=== PATIENT | male | born 1980 | race Caucasian/White ===

== ENCOUNTER 2018-01-17 05:53 | Day surgery (SDC) | payer OTHER ==
[2018-01-17] MEDS ORDERED: CEFAZOLIN 2 GM/50 ML (PMX) 50 ML IVPB (06:00)
[2018-01-17] MEDS ORDERED: PROPOFOL 20 ML (06:52)
[2018-01-17] MEDS ORDERED: CEFAZOLIN 1 GM INJ (06:52)
[2018-01-17] MEDS ORDERED: LIDOCAINE 2% (SDV) 5 ML INJ (06:52)
[2018-01-17] MEDS ORDERED: FENTAnyl 50 MCG/ML VIAL (06:53)
[2018-01-17] MEDS ORDERED: ONDANSETRON 4 MG INJ (06:53)
[2018-01-17] MEDS: BUPIVACAINE 0.5% (SDV) 30 ML INJ (07:23)
[2018-01-17] MEDS ORDERED: HYDROmorphONE (0.2 MG/ML) 10ML SYG IV ×2 (07:30)
[2018-01-17] MEDS ORDERED: ONDANSETRON 4 MG INJ IV (07:30)
[2018-01-17] MEDS ORDERED: FENTAnyl 50 MCG/ML VIAL IV ×2 (07:30)
[2018-01-17] MEDS ORDERED: MIDAZOLAM 1 MG/ML 2 ML INJ (07:39)
[2018-01-17] MEDS ORDERED: HYDROCODONE/APAP (5/325) TAB PO (09:00)
== END 2018-01-17 10:40 | disposition home or self-care (01) ==
LOC: SDS 05:53
DX: N47.1 Phimosis (principal); I10 Essential (primary) hypertension; E11.9 Type 2 diabetes mellitus without complications; E78.5 Hyperlipidemia, unspecified; E66.9 Obesity, unspecified; Z68.35 Body mass index [BMI] 35.0-35.9, adult
CPT/HCPCS: 54161; 82962; 88304

== ENCOUNTER 2018-01-24 10:00 | Inpatient (IN) | payer OTHER ==
[2018-01-24] MEDS ORDERED: INSULIN REGULAR 10 ML INJ IV (10:05)
[2018-01-24] MEDS ORDERED: INSULIN REGULAR, HUMAN 100 UNIT/1 ML 3ML VIAL IV (10:18)
[2018-01-24] MEDS: ONDANSETRON 4 MG INJ IV ×2 (10:45→22:20)
[2018-01-24] MEDS: morphine 4 MG/ML VIAL IV (10:45)
[2018-01-24] MEDS: SOD CHLORIDE 0.9% 2,000 ML IV (10:46)
[2018-01-24 11:19] LABS: ADD MAN DIFF? NO
[2018-01-24 11:23] LABS: WHITE BLOOD COUNT 12.7 10^3/ul (4.8-10.8)
[2018-01-24 11:23] LABS: BASOPHILS % 0.2 % (0.0-2.0); HEMATOCRIT 48.4 % (42.0-52.0); HEMOGLOBIN 17.3 g/dl (14.0-18.0); LYMPHOCYTES # 1.2 10^3/ul (0.8-2.9); LYMPHOCYTES % 9.4 % (15.0-51.0); MEAN CORPUSCULAR HEMOGLOBIN 30.8 pg (29.0-33.0); MEAN CORPUSCULAR HGB CONC 35.7 g/dl (32.0-37.0); MEAN CORPUSCULAR VOLUME 86.3 fl (82.0-101.0); MEAN PLATELET VOLUME 10.7 fl (7.4-10.4); MONOCYTE # 0.8 10^3/ul (0.3-0.9); MONOCYTES % 6.6 % (0.0-11.0); NEUTROPHIL # 10.6 10^3/ul (1.6-7.5); NEUTROPHILS % 83.5 % (39.0-77.0); PLATELET COUNT 280 10^3/UL (140-415); RED BLOOD COUNT 5.61 10^6/ul (4.70-6.10); RED CELL DISTRIBUTION WIDTH 12.7 % (11.5-14.5)
[2018-01-24 11:43] LABS: ETHANOL < 10.0 mg/dl
[2018-01-24 11:43] LABS: ALANINE AMINOTRANSFERASE 35 IU/L (13-69); ALKALINE PHOSPHATASE 83 IU/L (42-121); AMYLASE 63 U/L (11-123); ANION GAP 19 (8-16); ASPARTATE AMINO TRANSFERASE 20 IU/L (15-46); BLOOD UREA NITROGEN 22 mg/dl (7-20); CALCIUM 9.5 mg/dl (8.4-10.2); CARBON DIOXIDE 30 mmol/L (21-31); CHLORIDE 97 mmol/L (97-110); GLUCOSE 249 mg/dl (70-220); INR 1.05; LIPASE 55 U/L (23-300); MAGNESIUM 2.2 mg/dl (1.7-2.5); PHOSPHORUS 4.7 mg/dl (2.5-4.9); PROTIME 13.8 Sec (11.9-14.9); PT RATIO 1.1; SODIUM 142 mmol/L (135-144)
[2018-01-24 11:44] LABS: ALBUMIN 5.1 g/dl (3.3-4.9); PARTIAL THROMBOPLASTIN TIME 25.2 Sec (25.0-35.0)
[2018-01-24 11:47] LABS: LACTIC ACID 2.3 mmol/L (0.5-2.0)
[2018-01-24] MEDS: MAGNESIUM SULFATE 2 GM, MULTIVITAMINS 10 ML, THIAMINE 100 MG, FOLIC ACID 1 MG in SOD CH... IV (11:51)
[2018-01-24] MEDS: LORAZEPAM 2 MG INJ IV (11:59)
[2018-01-24] MEDS: METOCLOPRAMIDE 10 MG INJ IV (11:59)
[2018-01-24] MEDS: LABETALOL HCL 20MG INJ IV (12:30)
[2018-01-24 13:20] LABS: LACTIC ACID 1.6 mmol/L (0.5-2.0)
[2018-01-24] MEDS: SOD CHLORIDE 0.9% 100 ML (13:26)
[2018-01-24] MEDS: IOHEXOL 300MG/ML 150 ML BTL (13:26)
[2018-01-24] MEDS: SODIUM CHLORIDE 0.9% 1L BAG IV* (13:50)
[2018-01-24] MEDS ORDERED: ONDANSETRON 4 MG TAB PO (14:00)
[2018-01-24] MEDS ORDERED: NACL 0.9% 3 ML SYG IV (14:00)
[2018-01-24] MEDS: HYPOGLYCEMIA PROTOCOL when Glucose is <70 mg/dL or symptomatic <90 mg/dL. XX (14:38)
[2018-01-24] MEDS: Discontinue current oral sulfonylureas (glyburide, glipizide, and/or glimepiride) prior to XX (14:38)
[2018-01-24 14:50] LABS: HEMOGLOBIN A1C 8.1 % (0-5.9)
[2018-01-24] MEDS ORDERED: GLUCOSE GEL 15 GRAM TUBE PO ×2 (15:00)
[2018-01-24] MEDS ORDERED: GLUCAGON 1 MG INJ IM (15:00)
[2018-01-24] MEDS ORDERED: DEXTROSE 50% 50 ML SYRINGE IV ×2 (15:00)
[2018-01-24] MEDS ORDERED: GLUCOSE GEL 15 GRAM TUBE BUCCAL (15:00)
[2018-01-24] MEDS: PANTOPRAZOLE (EC) 40 MG TAB PO (18:21)
[2018-01-24] MEDS: SOD CHLORIDE 0.9% 1,000 ML IV ×2 (18:22→22:47)
[2018-01-24] MEDS: INSULIN ASPART [NOVOLOG] 3 ML PEN SC ×4 (18:28→20:40)
[2018-01-24] MEDS: ATORVASTATIN 80 MG TAB PO (20:32)
[2018-01-24] MEDS: INSULIN GLARGINE [LANtus] 3 ML PEN SC (20:40)
[2018-01-24] MEDS: ACETAMINOPHEN 325 MG TAB PO (22:20)
[2018-01-25] MEDS: ACCU-CHEK XX (01:41)
[2018-01-25] MEDS: SOD CHLORIDE 0.9% 1,000 ML IV ×4 (01:41→12:00)
[2018-01-25 05:20] LABS: ADD MAN DIFF? NO
[2018-01-25 05:22] LABS: WHITE BLOOD COUNT 12.1 10^3/ul (4.8-10.8)
[2018-01-25 05:22] LABS: BASOPHILS % 0.2 % (0.0-2.0); EOSINOPHILS % 0.1 % (0.0-7.0); HEMATOCRIT 43.3 % (42.0-52.0); LYMPHOCYTES # 1.7 10^3/ul (0.8-2.9); MEAN CORPUSCULAR HEMOGLOBIN 29.9 pg (29.0-33.0); MEAN CORPUSCULAR HGB CONC 34.6 g/dl (32.0-37.0); MEAN CORPUSCULAR VOLUME 86.4 fl (82.0-101.0); MEAN PLATELET VOLUME 9.9 fl (7.4-10.4); MONOCYTE # 0.9 10^3/ul (0.3-0.9); NEUTROPHIL # 9.5 10^3/ul (1.6-7.5); NEUTROPHILS % 78.3 % (39.0-77.0); PLATELET COUNT 245 10^3/UL (140-415); RED BLOOD COUNT 5.01 10^6/ul (4.70-6.10); RED CELL DISTRIBUTION WIDTH 12.7 % (11.5-14.5)
[2018-01-25] MEDS: PANTOPRAZOLE (EC) 40 MG TAB PO ×2 (05:27→17:15)
[2018-01-25] MEDS: ONDANSETRON 4 MG INJ IV ×3 (05:27→19:56)
[2018-01-25 05:51] LABS: ALANINE AMINOTRANSFERASE 29 IU/L (13-69); ALBUMIN/GLOBULIN RATIO 1.25; ALKALINE PHOSPHATASE 63 IU/L (42-121); ANION GAP 13 (8-16); ASPARTATE AMINO TRANSFERASE 13 IU/L (15-46); BLOOD UREA NITROGEN 11 mg/dl (7-20); CALCIUM 8.3 mg/dl (8.4-10.2); CARBON DIOXIDE 26 mmol/L (21-31); CHLORIDE 103 mmol/L (97-110); GLUCOSE 173 mg/dl (70-220); MAGNESIUM 2.3 mg/dl (1.7-2.5); SODIUM 138 mmol/L (135-144); TOTAL PROTEIN 7.2 g/dl (6.1-8.1)
[2018-01-25] MEDS: ASPIRIN (EC) 81 MG TAB PO (08:18)
[2018-01-25] MEDS: BENAZEPRIL 20 MG TAB PO (08:18)
[2018-01-25] MEDS: METOPROLOL (XL) 25 MG TAB PO (08:19)
[2018-01-25] MEDS: ENOXAPARIN 40 MG/0.4 ML SYG SC (08:21)
[2018-01-25] MEDS: INSULIN ASPART [NOVOLOG] 3 ML PEN SC ×7 (09:00→21:00)
[2018-01-25] MEDS: METOCLOPRAMIDE 10 MG INJ IV ×2 (10:36→17:16)
[2018-01-25 15:23] LABS: ADD UMIC YES; UR ASCORBIC ACID NEGATIVE (NEGATIVE); UR BILIRUBIN (Dip) NEGATIVE (NEGATIVE); UR BLOOD (Dip) NEGATIVE (NEGATIVE); UR CLARITY CLEAR (CLEAR); UR COLOR YELLOW (YELLOW); UR GLUCOSE (Dip) 3+ mg/dL (NEGATIVE); UR KETONES (Dip) 1+ mg/dL (NEGATIVE); UR LEUKOCYTE ESTERASE (Dip) NEGATIVE Leu/ul (NEGATIVE); UR NITRITE (Dip) NEGATIVE (NEGATIVE); UR RBC 5 /HPF (0-5); UR SPECIFIC GRAVITY (Dip) 1.022 (1.003-1.030); UR TOTAL PROTEIN (Dip) 1+ mg/dl (NEGATIVE); UR UROBILINOGEN (Dip) NEGATIVE (NEGATIVE); UR WBC 1 /HPF (0-5)
[2018-01-25 16:29] LABS: AMPHETAMINE/METHAMPHETAMINE NEGATIVE (NEGATIVE); BARBITURATES NEGATIVE (NEGATIVE); BENZODIAZEPINES NEGATIVE (NEGATIVE); CANNABINOIDS NEGATIVE (NEGATIVE); COCAINE NEGATIVE (NEGATIVE); OPIATES POSITIVE (NEGATIVE)
[2018-01-25] MEDS: ATORVASTATIN 80 MG TAB PO (21:00)
[2018-01-25] MEDS: INSULIN GLARGINE [LANtus] 3 ML PEN SC (21:12)
[2018-01-26] MEDS: METOCLOPRAMIDE 10 MG INJ IV ×5 (00:01→23:36)
[2018-01-26] MEDS: SOD CHLORIDE 0.9% 1,000 ML IV ×5 (00:01→21:57)
[2018-01-26] MEDS: ACCU-CHEK XX (01:44)
[2018-01-26 05:31] LABS: ADD MAN DIFF? NO
[2018-01-26] MEDS: PANTOPRAZOLE (EC) 40 MG TAB PO ×2 (05:33→18:22)
[2018-01-26 05:41] LABS: BASOPHILS % 0.3 % (0.0-2.0); EOSINOPHILS % 0.1 % (0.0-7.0); HEMATOCRIT 43.4 % (42.0-52.0); HEMOGLOBIN 15.1 g/dl (14.0-18.0); LYMPHOCYTES # 1.8 10^3/ul (0.8-2.9); LYMPHOCYTES % 17.8 % (15.0-51.0); MEAN CORPUSCULAR HEMOGLOBIN 29.7 pg (29.0-33.0); MEAN CORPUSCULAR HGB CONC 34.8 g/dl (32.0-37.0); MEAN CORPUSCULAR VOLUME 85.3 fl (82.0-101.0); MEAN PLATELET VOLUME 10.3 fl (7.4-10.4); MONOCYTE # 0.9 10^3/ul (0.3-0.9); MONOCYTES % 8.7 % (0.0-11.0); NEUTROPHIL # 7.4 10^3/ul (1.6-7.5); NEUTROPHILS % 72.8 % (39.0-77.0); PLATELET COUNT 243 10^3/UL (140-415); RED BLOOD COUNT 5.09 10^6/ul (4.70-6.10); RED CELL DISTRIBUTION WIDTH 12.2 % (11.5-14.5)
[2018-01-26 05:41] LABS: WHITE BLOOD COUNT 10.1 10^3/ul (4.8-10.8)
[2018-01-26 06:06] LABS: ANION GAP 13 (8-16); BLOOD UREA NITROGEN 11 mg/dl (7-20); CALCIUM 8.1 mg/dl (8.4-10.2); CARBON DIOXIDE 26 mmol/L (21-31); CHLORIDE 103 mmol/L (97-110); CREATININE 0.55 mg/dl (0.61-1.24); GLUCOSE 151 mg/dl (70-220); MAGNESIUM 2.4 mg/dl (1.7-2.5); POTASSIUM 3.6 mmol/L (3.5-5.1); SODIUM 138 mmol/L (135-144)
[2018-01-26] MEDS: METOPROLOL (XL) 25 MG TAB PO (08:36)
[2018-01-26] MEDS: ASPIRIN (EC) 81 MG TAB PO (08:37)
[2018-01-26] MEDS: BENAZEPRIL 20 MG TAB PO (08:37)
[2018-01-26] MEDS: ENOXAPARIN 40 MG/0.4 ML SYG SC (08:39)
[2018-01-26] MEDS: ONDANSETRON 4 MG INJ IV ×2 (08:51→18:01)
[2018-01-26] MEDS: INSULIN ASPART [NOVOLOG] 3 ML PEN SC ×7 (09:18→21:00)
[2018-01-26] MEDS: INSULIN GLARGINE [LANtus] 3 ML PEN SC (21:00)
[2018-01-26] MEDS: ATORVASTATIN 80 MG TAB PO (21:53)
[2018-01-27] MEDS: INSULIN ASPART [NOVOLOG] 3 ML PEN SC ×9 (01:00→20:27)
[2018-01-27] MEDS: ONDANSETRON 4 MG INJ IV ×2 (01:47→07:10)
[2018-01-27] MEDS: ACCU-CHEK XX (02:00)
[2018-01-27] MEDS: METOCLOPRAMIDE 10 MG INJ IV ×4 (05:05→23:59)
[2018-01-27 05:07] LABS: ADD MAN DIFF? NO; BASOPHILS % 0.4 % (0.0-2.0); EOSINOPHILS % 0.2 % (0.0-7.0); HEMATOCRIT 44.6 % (42.0-52.0); HEMOGLOBIN 15.7 g/dl (14.0-18.0); LYMPHOCYTES # 2.1 10^3/ul (0.8-2.9); LYMPHOCYTES % 20.3 % (15.0-51.0); MEAN CORPUSCULAR HEMOGLOBIN 29.7 pg (29.0-33.0); MEAN CORPUSCULAR HGB CONC 35.2 g/dl (32.0-37.0); MEAN CORPUSCULAR VOLUME 84.5 fl (82.0-101.0); MEAN PLATELET VOLUME 10.2 fl (7.4-10.4); MONOCYTE # 0.9 10^3/ul (0.3-0.9); MONOCYTES % 8.4 % (0.0-11.0); NEUTROPHIL # 7.1 10^3/ul (1.6-7.5); NEUTROPHILS % 70.4 % (39.0-77.0); PLATELET COUNT 256 10^3/UL (140-415); RED BLOOD COUNT 5.28 10^6/ul (4.70-6.10); RED CELL DISTRIBUTION WIDTH 12.2 % (11.5-14.5)
[2018-01-27 05:07] LABS: WHITE BLOOD COUNT 10.1 10^3/ul (4.8-10.8)
[2018-01-27] MEDS: PANTOPRAZOLE (EC) 40 MG TAB PO ×2 (05:12→18:00)
[2018-01-27 05:33] LABS: ANION GAP 16 (8-16); BLOOD UREA NITROGEN 10 mg/dl (7-20); CALCIUM 8.3 mg/dl (8.4-10.2); CARBON DIOXIDE 26 mmol/L (21-31); CHLORIDE 101 mmol/L (97-110); CREATININE 0.59 mg/dl (0.61-1.24); GLUCOSE 107 mg/dl (70-220); MAGNESIUM 2.4 mg/dl (1.7-2.5); PHOSPHORUS 3.2 mg/dl (2.5-4.9); POTASSIUM 3.5 mmol/L (3.5-5.1); SODIUM 139 mmol/L (135-144)
[2018-01-27] MEDS: METOPROLOL (XL) 25 MG TAB PO (05:33)
[2018-01-27] MEDS: BENAZEPRIL 20 MG TAB PO (05:34)
[2018-01-27] MEDS: ASPIRIN (EC) 81 MG TAB PO (08:36)
[2018-01-27] MEDS: ENOXAPARIN 40 MG/0.4 ML SYG SC (08:37)
[2018-01-27] MEDS: SOD CHLORIDE 0.9% 1,000 ML IV ×3 (12:24→23:27)
[2018-01-27] MEDS: ATORVASTATIN 80 MG TAB PO (20:23)
[2018-01-27] MEDS: INSULIN GLARGINE [LANtus] 3 ML PEN SC (20:25)
[2018-01-28] MEDS: INSULIN ASPART [NOVOLOG] 3 ML PEN SC ×6 (01:10→13:04)
[2018-01-28] MEDS: ACCU-CHEK XX (01:11)
[2018-01-28] MEDS: METOCLOPRAMIDE 10 MG INJ IV ×2 (05:10→11:48)
[2018-01-28] MEDS: PANTOPRAZOLE (EC) 40 MG TAB PO (05:10)
[2018-01-28] MEDS: ASPIRIN (EC) 81 MG TAB PO (09:16)
[2018-01-28] MEDS: BENAZEPRIL 20 MG TAB PO (09:16)
[2018-01-28] MEDS: METOPROLOL (XL) 25 MG TAB PO (09:16)
[2018-01-28] MEDS: ENOXAPARIN 40 MG/0.4 ML SYG SC (09:18)
[2018-01-28] MEDS: SOD CHLORIDE 0.9% 1,000 ML IV (09:26)
[2018-01-28 14:44] LABS: IMMUNOGLOBULIN A 344 mg/dl (70-400)
== END 2018-01-28 16:04 | disposition home or self-care (01) | DRG 639 ==
LOC: E/R 10:00 → TEL 13:47 → MS1 23:05
DX: E11.10 Type 2 diabetes mellitus with ketoacidosis without coma (principal); K20.9 Esophagitis, unspecified; K29.70 Gastritis, unspecified, without bleeding; R11.10 Vomiting, unspecified; Z79.4 Long term (current) use of insulin
CPT/HCPCS: 74177; 78264; 80048; 80053; 80307; 81001; 82150; 82784; 82962; 83036; 83605; 83690; 83735; 84100; 85025; 85610; 85730; 87040; 87086; 88305; 88312; 88313; 93005; 96361; 96365; 96366; 96375; 99285-25; G0378

== ENCOUNTER 2018-03-26 13:42 | Inpatient (IN) | payer OTHER ==
[2018-03-26] MEDS: SOD CHLORIDE 0.9% 1,000 ML IV ×3 (14:12→17:41)
[2018-03-26] MEDS: ONDANSETRON 4 MG INJ IV ×2 (14:13→16:13)
[2018-03-26] MEDS: PANTOPRAZOLE 40 MG INJ IV (14:13)
[2018-03-26 14:17] LABS: WHITE BLOOD COUNT 13.1 10^3/ul (4.8-10.8)
[2018-03-26 14:17] LABS: ABNORMAL IP MESSAGE 1; HEMATOCRIT 45.2 % (42.0-52.0); HEMOGLOBIN 15.7 g/dl (14.0-18.0); IMMATURE GRANS #M 0.03 10^3/ul; IMMATURE GRANS % (M) 0.2 %; MEAN CORPUSCULAR HEMOGLOBIN 29.8 pg (29.0-33.0); MEAN CORPUSCULAR HGB CONC 34.7 g/dl (32.0-37.0); MEAN CORPUSCULAR VOLUME 85.8 fl (82.0-101.0); MEAN PLATELET VOLUME 10.8 fl (7.4-10.4); PLATELET COUNT 268 10^3/UL (140-415); POSITIVE DIFF @See below; RED BLOOD COUNT 5.27 10^6/ul (4.70-6.10); RED CELL DISTRIBUTION WIDTH 12.4 % (11.5-14.5)
[2018-03-26 14:19] LABS: ADD MAN DIFF? YES
[2018-03-26 14:34] LABS: ALANINE AMINOTRANSFERASE 28 IU/L (13-69); ALBUMIN 4.4 g/dl (3.3-4.9); ALBUMIN/GLOBULIN RATIO 1.37; ALKALINE PHOSPHATASE 98 IU/L (42-121); ASPARTATE AMINO TRANSFERASE 17 IU/L (15-46); BILIRUBIN,INDIRECT 1.3 mg/dl (0-1.1); BILIRUBIN,TOTAL 1.3 mg/dl (0.2-1.3); BLOOD UREA NITROGEN 28 mg/dl (7-20); CALCIUM 9.5 mg/dl (8.4-10.2); CHLORIDE 70 mmol/L (97-110); CREATININE 0.83 mg/dl (0.61-1.24); POTASSIUM 3.3 mmol/L (3.5-5.1); SODIUM 133 mmol/L (135-144); TOTAL PROTEIN 7.6 g/dl (6.1-8.1)
[2018-03-26 14:37] LABS: INR 0.98; PROTIME 13.1 Sec (11.9-14.9)
[2018-03-26 14:38] LABS: PARTIAL THROMBOPLASTIN TIME 22.4 Sec (25.0-35.0)
[2018-03-26 14:45] LABS: ANION GAP 18 (8-16); TROPONIN-I < 0.010 ng/ml (0.000-0.120)
[2018-03-26 14:46] LABS: CARBON DIOXIDE 48 mmol/L (21-31)
[2018-03-26 14:47] LABS: ANISOCYTOSIS 1+ (0-0); GLUCOSE 525 mg/dl (70-220); LYMPHOCYTES % (M) 8 % (15-51); MICROCYTOSIS 1+ (0-0); MONOCYTE #M 1.3 10^3/ul (0.3-0.9); MONOCYTES % (M) 10 % (0-11); PLATELET ESTIMATE NORMAL; SEGMENTED NEUTROPHILS (M) % 82 % (39-77); SMUDGE%M 13 % (0-0)
[2018-03-26] MEDS: INSULIN LISPRO 100 UNIT/ML VIAL SC (15:09)
[2018-03-26] MEDS: POTASSIUM CHLORIDE (SR) 20 MEQ TAB PO (15:23)
[2018-03-26] MEDS ORDERED: ACETAMINOPHEN 325 MG TAB PO (15:30)
[2018-03-26] MEDS ORDERED: ONDANSETRON 4 MG INJ IV (15:30)
[2018-03-26] MEDS: LABETALOL HCL 20MG INJ IV (15:55)
[2018-03-26] MEDS: PANTOPRAZOLE IV 80 MG in SOD CHLORIDE 0.9% 100 ML IV (16:57)
[2018-03-26] MEDS ORDERED: NACL 0.9% 3 ML SYG IV (17:00)
[2018-03-26 17:05] LABS: ADD UMIC YES; UR ASCORBIC ACID NEGATIVE (NEGATIVE); UR BILIRUBIN (Dip) NEGATIVE (NEGATIVE); UR BLOOD (Dip) NEGATIVE (NEGATIVE); UR CLARITY CLEAR (CLEAR); UR COLOR STRAW (YELLOW); UR GLUCOSE (Dip) 3+ mg/dL (NEGATIVE); UR KETONES (Dip) 1+ mg/dL (NEGATIVE); UR LEUKOCYTE ESTERASE (Dip) NEGATIVE Leu/ul (NEGATIVE); UR NITRITE (Dip) NEGATIVE (NEGATIVE); UR RBC 0 /HPF (0-5); UR SPECIFIC GRAVITY (Dip) 1.026 (1.003-1.030); UR TOTAL PROTEIN (Dip) 1+ mg/dl (NEGATIVE); UR UROBILINOGEN (Dip) NEGATIVE (NEGATIVE); UR WBC 2 /HPF (0-5)
[2018-03-26 17:12] LABS: FREE T4 (FREE THYROXINE) 1.85 ng/dl (0.79-2.35)
[2018-03-26 17:27] LABS: THYROID STIMULATING HORMONE 0.294 MIU/L (0.465-4.680)
[2018-03-26] MEDS ORDERED: DEXTROSE 50% 50 ML SYRINGE IV ×2 (17:30)
[2018-03-26] MEDS ORDERED: GLUCOSE GEL 15 GRAM TUBE PO ×2 (17:30)
[2018-03-26] MEDS ORDERED: GLUCAGON 1 MG INJ IM (17:30)
[2018-03-26] MEDS ORDERED: GLUCOSE GEL 15 GRAM TUBE BUCCAL (17:30)
[2018-03-26] MEDS ORDERED: INSULIN ASPART [NOVOLOG] 3 ML PEN SC (17:30)
[2018-03-26 17:56] LABS: OSMOLALITY 304 mOsm/kg (280-295)
[2018-03-26 18:08] LABS: OSMOLALITY,URINE 625 mOsm/kg (250-1200)
[2018-03-26] MEDS: Insulin NOVOLOG SS MILD Algorithm (NPO/TPN/ENTERAL FEEDS) SC ×2 (19:13→21:58)
[2018-03-26] MEDS: INSULIN GLARGINE [LANTus] (100 UNITS/ML) SYG SC (20:23)
[2018-03-26] MEDS: ATORVASTATIN 80 MG TAB PO (21:28)
[2018-03-26] MEDS: BETAMETHASONE/CLOTRIMAZOLE 15 GM CR TOP (21:58)
[2018-03-26 23:24] LABS: HEMATOCRIT 39.3 % (42.0-52.0); HEMOGLOBIN 13.7 g/dl (14.0-18.0)
[2018-03-27] MEDS: SOD CHLORIDE 0.9% 1,000 ML IV ×4 (01:00→16:56)
[2018-03-27] MEDS: Insulin NOVOLOG SS MILD Algorithm (NPO/TPN/ENTERAL FEEDS) SC ×6 (01:17→21:36)
[2018-03-27] MEDS: PANTOPRAZOLE IV 80 MG in SOD CHLORIDE 0.9% 100 ML IV ×2 (02:23→11:02)
[2018-03-27] MEDS: hydrALAzine 20 MG INJ IV ×2 (03:27→21:23)
[2018-03-27 05:09] LABS: ADD MAN DIFF? NO
[2018-03-27 05:13] LABS: WHITE BLOOD COUNT 9.3 10^3/ul (4.8-10.8)
[2018-03-27 05:13] LABS: BASOPHILS % 0.1 % (0.0-2.0); EOSINOPHILS % 0.1 % (0.0-7.0); HEMATOCRIT 42.8 % (42.0-52.0); HEMOGLOBIN 14.5 g/dl (14.0-18.0); IMMATURE GRANS #M 0.03 10^3/ul; IMMATURE GRANS % (M) 0.3 %; LYMPHOCYTES # 2.3 10^3/ul (0.8-2.9); LYMPHOCYTES % 24.4 % (15.0-51.0); MEAN CORPUSCULAR HEMOGLOBIN 29.5 pg (29.0-33.0); MEAN CORPUSCULAR HGB CONC 33.9 g/dl (32.0-37.0); MEAN CORPUSCULAR VOLUME 87.2 fl (82.0-101.0); MEAN PLATELET VOLUME 11.2 fl (7.4-10.4); MONOCYTES % 10.4 % (0.0-11.0); NEUTROPHILS % 64.7 % (39.0-77.0); PLATELET COUNT 234 10^3/UL (140-415); RED BLOOD COUNT 4.91 10^6/ul (4.70-6.10); RED CELL DISTRIBUTION WIDTH 12.5 % (11.5-14.5)
[2018-03-27 05:30] LABS: CHOLESTEROL 164 mg/dl (100-200)
[2018-03-27 05:30] LABS: HDL CHOLESTEROL 53 mg/dl (28-63); LDL CHOLESTEROL,CALCULATED 83 mg/dl; TRIGLYCERIDES 138 mg/dl (0-149)
[2018-03-27 05:33] LABS: PHOSPHORUS 2.9 mg/dl (2.5-4.9)
[2018-03-27 05:33] LABS: MAGNESIUM 2.3 mg/dl (1.7-2.5)
[2018-03-27 05:34] LABS: ALANINE AMINOTRANSFERASE 18 IU/L (13-69); ALBUMIN 3.7 g/dl (3.3-4.9); ALBUMIN/GLOBULIN RATIO 1.27; ALKALINE PHOSPHATASE 72 IU/L (42-121); ASPARTATE AMINO TRANSFERASE 13 IU/L (15-46); BILIRUBIN,INDIRECT 1.3 mg/dl (0-1.1); BILIRUBIN,TOTAL 1.3 mg/dl (0.2-1.3); BLOOD UREA NITROGEN 14 mg/dl (7-20); CALCIUM 8.9 mg/dl (8.4-10.2); CHLORIDE 88 mmol/L (97-110); CREATININE 0.52 mg/dl (0.61-1.24); GLUCOSE 216 mg/dl (70-220); SODIUM 139 mmol/L (135-144); TOTAL PROTEIN 6.6 g/dl (6.1-8.1)
[2018-03-27 05:42] LABS: ANION GAP 11 (8-16)
[2018-03-27 05:43] LABS: POTASSIUM 2.7 mmol/L (3.5-5.1)
[2018-03-27 05:44] LABS: CARBON DIOXIDE 43 mmol/L (21-31)
[2018-03-27] MEDS: ONDANSETRON 4 MG INJ IV ×2 (07:00→16:56)
[2018-03-27] MEDS: POTASSIUM CHLORIDE 100 ML IVPB ×3 (08:32→13:16)
[2018-03-27] MEDS: BENAZEPRIL 20 MG TAB PO (08:41)
[2018-03-27] MEDS: METOPROLOL (XL) 25 MG TAB PO (08:42)
[2018-03-27] MEDS: BETAMETHASONE/CLOTRIMAZOLE 15 GM CR TOP ×3 (08:42→21:37)
[2018-03-27] MEDS: METOCLOPRAMIDE 10 MG INJ IV (08:54)
[2018-03-27] MEDS: morphine 2 MG INJ IV ×2 (08:54→16:56)
[2018-03-27 11:50] LABS: HEMATOCRIT 39.6 % (42.0-52.0); HEMOGLOBIN 13.4 g/dl (14.0-18.0)
[2018-03-27 12:19] LABS: ANION GAP 11 (8-16); BLOOD UREA NITROGEN 12 mg/dl (7-20); CALCIUM 8.4 mg/dl (8.4-10.2); CARBON DIOXIDE 37 mmol/L (21-31); CHLORIDE 90 mmol/L (97-110); CREATININE 0.56 mg/dl (0.61-1.24); GLUCOSE 309 mg/dl (70-220); POTASSIUM 3.1 mmol/L (3.5-5.1); SODIUM 135 mmol/L (135-144)
[2018-03-27] MEDS: LIDOCAINE 1% (MPF) 5 ML VIAL (12:53)
[2018-03-27] MEDS: SUCRALFATE (100 MG/ML) 10ML CUP PO ×3 (13:27→21:37)
[2018-03-27] MEDS: PANTOPRAZOLE 40 MG INJ IV (17:20)
[2018-03-27 18:00] LABS: HEMATOCRIT 39.9 % (42.0-52.0); HEMOGLOBIN 13.4 g/dl (14.0-18.0)
[2018-03-27] MEDS: INSULIN GLARGINE [LANTus] (100 UNITS/ML) SYG SC (21:37)
[2018-03-27] MEDS: ATORVASTATIN 80 MG TAB PO (21:37)
[2018-03-27 23:02] LABS: HEMATOCRIT 37.7 % (42.0-52.0); HEMOGLOBIN 12.8 g/dl (14.0-18.0)
[2018-03-28] MEDS: SOD CHLORIDE 0.9% 1,000 ML IV ×4 (00:36→23:55)
[2018-03-28] MEDS: hydrALAzine 20 MG INJ IV ×2 (04:49→21:58)
[2018-03-28] MEDS: PANTOPRAZOLE 40 MG INJ IV (04:52)
[2018-03-28 05:51] LABS: ADD MAN DIFF? NO
[2018-03-28 06:02] LABS: WHITE BLOOD COUNT 7.1 10^3/ul (4.8-10.8)
[2018-03-28 06:02] LABS: BASOPHILS % 0.1 % (0.0-2.0); EOSINOPHILS % 0.3 % (0.0-7.0); HEMATOCRIT 42.2 % (42.0-52.0); HEMOGLOBIN 14.4 g/dl (14.0-18.0); IMMATURE GRANS #M 0.03 10^3/ul; IMMATURE GRANS % (M) 0.4 %; LYMPHOCYTES # 2.1 10^3/ul (0.8-2.9); LYMPHOCYTES % 29.9 % (15.0-51.0); MEAN CORPUSCULAR HEMOGLOBIN 29.8 pg (29.0-33.0); MEAN CORPUSCULAR HGB CONC 34.1 g/dl (32.0-37.0); MEAN CORPUSCULAR VOLUME 87.2 fl (82.0-101.0); MEAN PLATELET VOLUME 11.3 fl (7.4-10.4); MONOCYTE # 0.7 10^3/ul (0.3-0.9); MONOCYTES % 9.2 % (0.0-11.0); NEUTROPHIL # 4.3 10^3/ul (1.6-7.5); NEUTROPHILS % 60.1 % (39.0-77.0); PLATELET COUNT 220 10^3/UL (140-415); RED BLOOD COUNT 4.84 10^6/ul (4.70-6.10); RED CELL DISTRIBUTION WIDTH 12.5 % (11.5-14.5)
[2018-03-28 06:27] LABS: MAGNESIUM 2.1 mg/dl (1.7-2.5)
[2018-03-28 06:27] LABS: PHOSPHORUS 1.9 mg/dl (2.5-4.9)
[2018-03-28 06:52] LABS: ALANINE AMINOTRANSFERASE 16 IU/L (13-69); ALBUMIN 3.4 g/dl (3.3-4.9); ALBUMIN/GLOBULIN RATIO 1.09; ALKALINE PHOSPHATASE 67 IU/L (42-121); ANION GAP 12 (8-16); ASPARTATE AMINO TRANSFERASE 13 IU/L (15-46); BILIRUBIN,INDIRECT 1.1 mg/dl (0-1.1); BILIRUBIN,TOTAL 1.1 mg/dl (0.2-1.3); BLOOD UREA NITROGEN 8 mg/dl (7-20); CALCIUM 8.6 mg/dl (8.4-10.2); CARBON DIOXIDE 33 mmol/L (21-31); CHLORIDE 96 mmol/L (97-110); CREATININE 0.55 mg/dl (0.61-1.24); GLUCOSE 203 mg/dl (70-220); SODIUM 138 mmol/L (135-144); TOTAL PROTEIN 6.5 g/dl (6.1-8.1)
[2018-03-28] MEDS: SUCRALFATE (100 MG/ML) 10ML CUP PO ×4 (08:31→22:00)
[2018-03-28] MEDS: BENAZEPRIL 20 MG TAB PO (08:32)
[2018-03-28] MEDS: METOPROLOL (XL) 25 MG TAB PO (08:32)
[2018-03-28] MEDS: BETAMETHASONE/CLOTRIMAZOLE 15 GM CR TOP ×2 (08:33→21:00)
[2018-03-28] MEDS: INSULIN ASPART [NOVOLOG] 3 ML PEN SC ×4 (08:33→21:32)
[2018-03-28] MEDS: ONDANSETRON 4 MG INJ IV ×3 (08:42→23:55)
[2018-03-28] MEDS: POTASSIUM CHLORIDE (SR) 20 MEQ TAB PO (12:22)
[2018-03-28] MEDS: METOCLOPRAMIDE 10 MG INJ IV (12:32)
[2018-03-28] MEDS: METOCLOPRAMIDE 5 MG TAB PO ×2 (17:41→22:01)
[2018-03-28] MEDS: PANTOPRAZOLE (EC) 40 MG TAB PO (17:41)
[2018-03-28] MEDS: INSULIN GLARGINE [LANTus] (100 UNITS/ML) SYG SC (21:32)
[2018-03-28] MEDS: ATORVASTATIN 80 MG TAB PO (22:00)
[2018-03-29] MEDS: PANTOPRAZOLE (EC) 40 MG TAB PO (06:00)
[2018-03-29] MEDS: ONDANSETRON 4 MG INJ IV ×2 (06:25→21:04)
[2018-03-29] MEDS: INSULIN ASPART [NOVOLOG] 3 ML PEN SC ×4 (08:58→21:11)
[2018-03-29] MEDS: SOD CHLORIDE 0.9% 1,000 ML IV ×2 (09:49→16:23)
[2018-03-29] MEDS: BETAMETHASONE/CLOTRIMAZOLE 15 GM CR TOP ×2 (09:50→20:52)
[2018-03-29] MEDS: SUCRALFATE (100 MG/ML) 10ML CUP PO ×4 (09:51→20:49)
[2018-03-29] MEDS: BENAZEPRIL 20 MG TAB PO (09:51)
[2018-03-29] MEDS: METOPROLOL (XL) 25 MG TAB PO (09:51)
[2018-03-29] MEDS: METOCLOPRAMIDE 5 MG TAB PO (09:51)
[2018-03-29] MEDS: METOCLOPRAMIDE 10 MG INJ IV ×2 (12:19→18:18)
[2018-03-29] MEDS: AMLODIPINE 5 MG TAB PO (12:55)
[2018-03-29] MEDS ORDERED: LACTULOSE 30ML CUP PO (15:30)
[2018-03-29] MEDS: hydrALAzine 20 MG INJ IV (16:17)
[2018-03-29] MEDS: PANTOPRAZOLE 40 MG INJ IV (18:18)
[2018-03-29] MEDS: LACTULOSE 30ML CUP PO (20:49)
[2018-03-29] MEDS: ATORVASTATIN 80 MG TAB PO (20:49)
[2018-03-29] MEDS: INSULIN GLARGINE [LANTus] (100 UNITS/ML) SYG SC (21:12)
[2018-03-30] MEDS: METOCLOPRAMIDE 10 MG INJ IV ×4 (00:20→18:05)
[2018-03-30] MEDS: SOD CHLORIDE 0.9% 1,000 ML IV ×3 (00:22→17:00)
[2018-03-30] MEDS: PANTOPRAZOLE 40 MG INJ IV ×2 (05:34→18:05)
[2018-03-30 05:50] LABS: ADD MAN DIFF? NO
[2018-03-30 05:59] LABS: BASOPHILS % 0.1 % (0.0-2.0); EOSINOPHILS # 0.1 10^3/ul (0.0-0.5); EOSINOPHILS % 0.7 % (0.0-7.0); HEMATOCRIT 36.2 % (42.0-52.0); HEMOGLOBIN 13.1 g/dl (14.0-18.0); IMMATURE GRANS #M 0.03 10^3/ul; IMMATURE GRANS % (M) 0.4 %; LYMPHOCYTES # 1.8 10^3/ul (0.8-2.9); LYMPHOCYTES % 25.1 % (15.0-51.0); MEAN CORPUSCULAR HEMOGLOBIN 30.4 pg (29.0-33.0); MEAN CORPUSCULAR HGB CONC 36.2 g/dl (32.0-37.0); MEAN PLATELET VOLUME 11.5 fl (7.4-10.4); MONOCYTE # 0.9 10^3/ul (0.3-0.9); MONOCYTES % 12.1 % (0.0-11.0); NEUTROPHIL # 4.5 10^3/ul (1.6-7.5); NEUTROPHILS % 61.6 % (39.0-77.0); PLATELET COUNT 210 10^3/UL (140-415); RED BLOOD COUNT 4.31 10^6/ul (4.70-6.10); RED CELL DISTRIBUTION WIDTH 12.2 % (11.5-14.5)
[2018-03-30 05:59] LABS: WHITE BLOOD COUNT 7.3 10^3/ul (4.8-10.8)
[2018-03-30 06:19] LABS: ANION GAP 12 (8-16); BLOOD UREA NITROGEN 8 mg/dl (7-20); CALCIUM 8.2 mg/dl (8.4-10.2); CARBON DIOXIDE 25 mmol/L (21-31); CHLORIDE 105 mmol/L (97-110); CREATININE 0.49 mg/dl (0.61-1.24); GLUCOSE 151 mg/dl (70-220); SODIUM 139 mmol/L (135-144)
[2018-03-30 06:26] LABS: POTASSIUM 2.7 mmol/L (3.5-5.1)
[2018-03-30] MEDS: INSULIN ASPART [NOVOLOG] 3 ML PEN SC ×3 (07:50→18:06)
[2018-03-30] MEDS: POTASSIUM CHLORIDE 100 ML IVPB ×3 (08:41→13:23)
[2018-03-30] MEDS: LACTULOSE 30ML CUP PO (08:42)
[2018-03-30] MEDS: SUCRALFATE (100 MG/ML) 10ML CUP PO ×3 (08:42→18:04)
[2018-03-30] MEDS: METOPROLOL (XL) 25 MG TAB PO (08:42)
[2018-03-30] MEDS: AMLODIPINE 5 MG TAB PO (08:42)
[2018-03-30] MEDS: BETAMETHASONE/CLOTRIMAZOLE 15 GM CR TOP (08:43)
[2018-03-30] MEDS: BENAZEPRIL 20 MG TAB PO (08:43)
[2018-03-30 12:09] LABS: MAGNESIUM 1.8 mg/dl (1.7-2.5)
[2018-03-30 15:49] LABS: POTASSIUM 3.5 mmol/L (3.5-5.1)
[2018-03-30] MEDS: MAGNESIUM OXIDE 400 MG TAB PO (18:05)
== END 2018-03-30 18:20 | disposition home or self-care (01) | DRG 378 ==
LOC: E/R 13:42 → MS1 15:10
DX: K92.0 Hematemesis (principal); E87.3 Alkalosis; E87.1 Hypo-osmolality and hyponatremia; E11.65 Type 2 diabetes mellitus with hyperglycemia; H91.93 Unspecified hearing loss, bilateral; I10 Essential (primary) hypertension; E78.5 Hyperlipidemia, unspecified; L20.9 Atopic dermatitis, unspecified; E87.6 Hypokalemia; K59.00 Constipation, unspecified; Z79.82 Long term (current) use of aspirin; Z79.4 Long term (current) use of insulin; Z79.84 Long term (current) use of oral hypoglycemic drugs
CPT/HCPCS: 36415; 80048; 80053; 80061; 81001; 82962; 83036; 83735; 83930; 83935; 84100; 84132; 84439; 84443; 84484; 85014; 85018; 85025; 85610; 85730; 86850; 86900; 86901; 93005; 96361; 96372; 96374; 96375; 99291-25